=== PATIENT | female | born 2000 | race Two or more races ===

== ENCOUNTER 2020-02-04 13:56 | Observation (INO) | payer MEDICAID ==
[~2020-02-04] VITALS: Ht 154.9 cm; Wt 77.1 kg
[2020-02-04] MEDS ORDERED: TERBUTALINE SULFATE 1 MG/ML 1ML VIAL SC SCH (15:15)
[2020-02-04] MEDS ORDERED: BETAMETHASONE ACET (6MG/ML) 5ML VIAL IM SCH (15:15)
[2020-02-04] MEDS ORDERED: TERBUTALINE SULFATE 1 MG/ML 1ML VIAL SC ONE (15:22)
== END 2020-02-04 16:27 | disposition home or self-care (01) | DRG 563 ==
LOC: LDRP 13:56
PROVIDERS: ADMIT Obstetrics & Gynecology; ATTEND Obstetrics & Gynecology
DX: O60.00 Preterm labor without delivery, unspecified trimester (principal); Z3A.00 Weeks of gestation of pregnancy not specified
CPT/HCPCS: 76818; 81002; 96372; G0378; J0702; J3105

== ENCOUNTER 2020-02-05 15:19 | Observation (INO) | payer MEDICAID ==
[~2020-02-05] VITALS: Ht 171 cm; Wt 77.6 kg
[2020-02-05] MEDS ORDERED: BETAMETHASONE ACET (6MG/ML) 5ML VIAL IM ONE (15:45)
== END 2020-02-05 16:17 | disposition home or self-care (01) | DRG 563 ==
LOC: LDRP 15:19
PROVIDERS: ADMIT Obstetrics & Gynecology; ATTEND Obstetrics & Gynecology
DX: O60.00 Preterm labor without delivery, unspecified trimester (principal); Z3A.00 Weeks of gestation of pregnancy not specified
CPT/HCPCS: 59025; 81002; 96372; G0378

== ENCOUNTER 2020-02-08 14:04 | Observation (INO) | payer MEDICAID ==
[2020-02-08] MEDS ORDERED: PREN-145 OR (14:31)
[2020-02-08] MEDS ORDERED: NIF10C GT (14:31)
== END 2020-02-08 14:47 | disposition home or self-care (01) | DRG 563 ==
LOC: LDRP 14:04
PROVIDERS: ADMIT Specialist; ATTEND Specialist
DX: O60.00 Preterm labor without delivery, unspecified trimester (principal); Z3A.00 Weeks of gestation of pregnancy not specified
CPT/HCPCS: 76818; G0378; 81002

== ENCOUNTER 2020-02-11 14:21 | Observation (INO) | payer MEDICAID ==
[~2020-02-11] VITALS: Ht 154.9 cm; Wt 77.6 kg
[~2020-02-11 14:21] MED LIST: NIF10C GT; PREN-145 OR
[2020-02-11] MEDS ORDERED: LACTATED RINGER'S 1,000 ML IV ONE (15:42)
[2020-02-11] MEDS ORDERED: TERBUTALINE SULFATE 1 MG/ML 1ML VIAL SC SCH (15:45)
== END 2020-02-11 17:10 | disposition home or self-care (01) | DRG 563 ==
LOC: LDRP 14:21
PROVIDERS: ADMIT Specialist; ATTEND Specialist
DX: O60.03 Preterm labor without delivery, third trimester (principal); Z3A.32 32 weeks gestation of pregnancy
CPT/HCPCS: 76818; 81002; 96372; G0378; J3105; 96365

== ENCOUNTER 2020-02-15 11:04 | Observation (INO) | payer MEDICAID ==
[~2020-02-15] VITALS: Ht 154.9 cm; Wt 79.4 kg
[2020-02-15] MEDS ORDERED: NITR-87 PO (11:55)
[2020-02-15] MEDS ORDERED: LACTATED RINGER'S 1,000 ML IV ONE (12:09)
[2020-02-15] MEDS ORDERED: TERBUTALINE SULFATE 1 MG/ML 1ML VIAL SC SCH (12:15)
== END 2020-02-15 14:45 | disposition home or self-care (01) | DRG 563 ==
LOC: LDRP 11:04
PROVIDERS: ADMIT Specialist; ATTEND Specialist
DX: O60.03 Preterm labor without delivery, third trimester (principal); Z3A.33 33 weeks gestation of pregnancy
CPT/HCPCS: 76818; 81002; 96372; G0378; J3105; 59025; 96365

== ENCOUNTER 2020-02-18 14:50 | Observation (INO) | payer MEDICAID ==
[~2020-02-18 14:50] MED LIST changes: +NITR100C44 PO
[2020-02-18] MEDS ORDERED: NIF10C PO (15:51)
== END 2020-02-18 16:10 | disposition home or self-care (01) | DRG 563 ==
LOC: LDRP 14:50
PROVIDERS: ADMIT Obstetrics & Gynecology; ATTEND Obstetrics & Gynecology
DX: O60.03 Preterm labor without delivery, third trimester (principal); Z3A.33 33 weeks gestation of pregnancy
CPT/HCPCS: 76818; 81002; G0378

== ENCOUNTER 2020-02-22 16:06 | Observation (INO) | payer MEDICAID ==
[~2020-02-22] VITALS: Ht 154.9 cm; Wt 79.4 kg
[~2020-02-22 16:06] MED LIST changes: -NIF10C GT; +NIF10C PO
[2020-02-22] MEDS ORDERED: TERBUTALINE SULFATE 1 MG/ML 1ML VIAL SC SCH (17:11)
[2020-02-22] MEDS ORDERED: TERBUTALINE SULFATE 1 MG/ML 1ML VIAL SC ONE (17:19)
== END 2020-02-22 18:00 | disposition home or self-care (01) | DRG 563 ==
LOC: LDRP 16:06
PROVIDERS: ADMIT Obstetrics & Gynecology; ATTEND Obstetrics & Gynecology
DX: O60.03 Preterm labor without delivery, third trimester (principal); Z3A.34 34 weeks gestation of pregnancy
CPT/HCPCS: 76818; 81002; 96372; G0378; J3105

== ENCOUNTER 2020-02-27 11:10 | Observation (INO) | payer MEDICAID | END 2020-02-27 12:30 | disposition home or self-care (01) | DRG 563 | LOC: LDRP 11:10 | PROVIDERS: ADMIT Specialist; ATTEND Specialist | DX: O60.00 Preterm labor without delivery, unspecified trimester (principal); Z3A.34 34 weeks gestation of pregnancy | CPT/HCPCS: 59025; 76817; 76818; 81002; G0378 ==

== ENCOUNTER 2020-03-02 15:12 | Observation (INO) | payer MEDICAID | END 2020-03-02 16:23 | disposition home or self-care (01) | DRG 563 | LOC: LDRP 15:12 | PROVIDERS: ADMIT Obstetrics & Gynecology; ATTEND Obstetrics & Gynecology | DX: O60.03 Preterm labor without delivery, third trimester (principal); O62.9 Abnormality of forces of labor, unspecified; Z3A.35 35 weeks gestation of pregnancy | CPT/HCPCS: 59025; 76818; 81002; G0378 ==

== ENCOUNTER 2020-03-06 16:03 | Observation (INO) | payer MEDICAID | END 2020-03-06 17:45 | disposition home or self-care (01) | DRG 563 | LOC: LDRP 16:03 | PROVIDERS: ADMIT Specialist; ATTEND Specialist | DX: O60.03 Preterm labor without delivery, third trimester (principal); Z3A.35 35 weeks gestation of pregnancy | CPT/HCPCS: 59025; 76818; 81002; G0378 ==

== ENCOUNTER 2020-03-09 18:49 | Observation (INO) | payer MEDICAID ==
[~2020-03-09] VITALS: Ht 154.9 cm; Wt 80.3 kg
== END 2020-03-09 20:18 | disposition home or self-care (01) | DRG 563 ==
LOC: LDRP 18:49
PROVIDERS: ADMIT Specialist; ATTEND Specialist
DX: O60.03 Preterm labor without delivery, third trimester (principal); Z3A.36 36 weeks gestation of pregnancy
CPT/HCPCS: 59025; 76818; 81002; G0378

== ENCOUNTER 2020-03-12 07:31 | Observation (INO) | payer MEDICAID | END 2020-03-12 08:21 | disposition home or self-care (01) | DRG 566 | LOC: LDRP 07:31 | PROVIDERS: ADMIT Obstetrics & Gynecology; ATTEND Obstetrics & Gynecology | DX: O26.893 Other specified pregnancy related conditions, third trimester (principal); R10.30 Lower abdominal pain, unspecified; O60.03 Preterm labor without delivery, third trimester; O62.9 Abnormality of forces of labor, unspecified; Z3A.36 36 weeks gestation of pregnancy | CPT/HCPCS: 59025; 81002; G0378 ==

== ENCOUNTER 2020-03-30 08:20 | Inpatient (IN) | payer MEDICAID ==
[~2020-03-30] VITALS: Ht 154.9 cm; Wt 86.2 kg
[2020-03-30] MEDS ORDERED: LACTATED RINGER'S 1,000 ML IV SCH (08:40)
[2020-03-30] MEDS ORDERED: LACT. RINGERS/OXYTOCIN 20UNITS 1,000 ML IV SCH (08:40)
[2020-03-30] MEDS ORDERED: LIDOCAINE 2%HCL (LOCAL ANESTH.) INJ 20ML MDV ID ONE (08:45)
[2020-03-30 09:19] LABS: Basophils # (auto) 0.1 10 ^3/uL (0-0.2); Basophils % (auto) 0.4 % (0.0-2.0); Eosinophils # (auto) 0.1 10 ^3/uL (0-0.8); Eosinophils % (auto) 0.5 % (0.0-7.0); Hematocrit 35.9 % (36.0-46.0); Hemoglobin 12.1 g/dL (12.2-16.2); Lymphocytes # (auto) 3.3 10 ^3/uL (0.4-5.4); Lymphocytes % (auto) 25.2 % (10.0-50.0); Mean Corpuscular Hemoglobin 29.4 pg (28.0-32.0); Mean Corpuscular Hgb Conc. 33.7 g/dL (32.0-36.0); Mean Corpuscular Volume 87.4 fL (80.0-100.0); Monocytes # (auto) 0.9 10 ^3/uL (0-1.3); Monocytes % (auto) 6.9 % (0.0-12.0); Neutrophils # (auto) 8.9 10 ^3/uL (1.6-8.6); Platelet Count (auto) 298 10^3/uL (140-450); Red Blood Cells 4.11 10^6/uL (4.0-5.20); Red Cell Distribution Width 14.2 % (11.8-14.3); White Blood Cell 13.2 10^3/uL (4.4-10.8)
[2020-03-30 09:29] LABS: Urine Amorphous Crystal FEW /hpf (None Seen); Urine Bacteria NONE SEEN /hpf (None Seen); Urine Blood 1+ /uL (Negative); Urine Mucus FEW (None Seen); Urine WBC 3 /hpf (0 - 5)
[2020-03-30 09:35] LABS: INR 0.92 (0.9-1.15); Partial Thromboplastin Time 28.8 sec (23.64-32.05)
[2020-03-30 09:38] LABS: Albumin 2.8 g/dL (3.4-5.0); Calcium 8.7 mg/dL (8.5-10.1); Potassium 4.1 mmol/L (3.5-5.1)
[2020-03-30 09:43] LABS: BUN/Creatinine Ratio 15.4; Bilirubin, Total 0.3 mg/dL (0.2-1.0); Total Protein 7.2 g/dL (6.4-8.2)
[2020-03-30] MEDS ORDERED: DERMOPLAST 60ML BOTTLE TOP PRN (09:45)
[2020-03-30] MEDS ORDERED: PHISODERM TOP SOLN 240ML BTL TOP PRN (09:45)
[2020-03-30] MEDS ORDERED: WITCH HAZEL-GLYCERIN PAD TOP PRN (09:45)
[2020-03-30 09:49] LABS: Alcohol, Urine < 3.0 mg/dL (0-10); Amphetamine Screen, Urine NEGATIVE (NEGATIVE); Barbiturate Scree,Urine NEGATIVE (NEGATIVE); Benzodiazephine Screen, Urine NEGATIVE (NEGATIVE); Cannabinoid Screen, Urine NEGATIVE (NEGATIVE); Cocaine Screen, Urine NEGATIVE (NEGATIVE); Opiate Scree,Urine NEGATIVE (NEGATIVE); Phencyclidine Screen, Urine NEGATIVE (NEGATIVE)
[2020-03-30] MEDS: IBUPROFEN 600 MG TAB PO PRN ×2 (12:49→23:02)
[2020-03-30 15:00] VITALS: BP 119/63
[2020-03-30 18:30] VITALS: BP 135/69
[2020-03-30 23:00] VITALS: BP 121/72
[2020-03-31 03:00] VITALS: BP 118/64
[2020-03-31] MEDS: IBUPROFEN 600 MG TAB PO PRN (05:33)
[2020-03-31 07:20] VITALS: BP 116/66
[2020-03-31] MEDS ORDERED: DOCUSATE CALCIUM 240 MG CAP PO SCH (10:00)
[2020-03-31 11:20] VITALS: BP 104/54
== END 2020-03-31 13:15 | disposition home or self-care (01) | DRG 560 ==
LOC: UNDOADMOB 08:20 → LDRP 08:20 → OBSVTOIN 08:30 → INTOOBSV 08:30 → LDRP 08:40 → OBSVTOIN 08:40
PROVIDERS: ADMIT Specialist; ATTEND Specialist
PROC: 0W8NXZZ Division of Female Perineum, External Approach (ICD-10-PCS; principal; 2020-03-30)
PROC: 10D07Z6 Extraction of Products of Conception, Vacuum, Via Natural or Artificial Opening (ICD-10-PCS; 2020-03-30)
DX: O69.81X0 Labor and delivery complicated by cord around neck, without compression, not applicable or unspecified (principal); O62.3 Precipitate labor; O77.0 Labor and delivery complicated by meconium in amniotic fluid; Z3A.39 39 weeks gestation of pregnancy; Z37.0 Single live birth
CPT/HCPCS: 36415; 59025; 59409; 80053; 80307; 81001; 81002; 84112; 85025; 85610; 85730; 86592; 86703; 86850; 86900; 86901; 96365; 96366; G0378; J2590

== ENCOUNTER 2020-05-14 12:40 | Inpatient (IN) | payer MEDICAID ==
[~2020-05-14] VITALS: Ht 154.9 cm; Wt 81.8 kg
[~2020-05-14 12:40] MED LIST changes: +NITR-87 PO; -NITR100C44 PO
[2020-05-14 14:21] LABS: Basophils # (auto) 0.1 10 ^3/uL (0-0.2); Basophils % (auto) 0.4 % (0.0-2.0); Eosinophils # (auto) 0.1 10 ^3/uL (0-0.8); Eosinophils % (auto) 0.4 % (0.0-7.0); Hematocrit 43.2 % (36.0-46.0); Hemoglobin 13.9 g/dL (12.2-16.2); Lymphocytes # (auto) 2.6 10 ^3/uL (0.4-5.4); Lymphocytes % (auto) 16.1 % (10.0-50.0); Mean Corpuscular Hemoglobin 27.5 pg (28.0-32.0); Mean Corpuscular Hgb Conc. 32.3 g/dL (32.0-36.0); Mean Corpuscular Volume 85.1 fL (80.0-100.0); Monocytes # (auto) 0.7 10 ^3/uL (0-1.3); Monocytes % (auto) 4.2 % (0.0-12.0); Neutrophils # (auto) 12.5 10 ^3/uL (1.6-8.6); Neutrophils % (auto) 78.9 % (37.0-80.0); Platelet Count (auto) 340 10^3/uL (140-450); Red Blood Cells 5.07 10^6/uL (4.0-5.20); White Blood Cell 15.9 10^3/uL (4.4-10.8)
[2020-05-14 14:25] LABS: Urine Bacteria MOD /hpf (None Seen); Urine Blood Negative /uL (Negative); Urine Mucus FEW (None Seen); Urine Specific Gravity 1.028 (1.001-1.035); Urine WBC 4 /hpf (0 - 5)
[2020-05-14 14:40] LABS: Albumin 4.1 g/dL (3.4-5.0); BUN/Creatinine Ratio 18.2; Calcium 9.7 mg/dL (8.5-10.1); Potassium 3.8 mmol/L (3.5-5.1)
[2020-05-14 14:43] LABS: Bilirubin, Total 0.4 mg/dL (0.2-1.0); Total Protein 8.5 g/dL (6.4-8.2)
[2020-05-14] MEDS ORDERED: SODIUM CHLORIDE 0.9% 1,000 ML IVB ONE (17:54)
[2020-05-14] MEDS ORDERED: cefTRIAXone 1GM/50ML D5W 50 ML IV ONE ×2 (18:00→19:15)
[2020-05-14] MEDS ORDERED: ACETAMINOPHEN 500 MG TAB PO PRN (19:15)
[2020-05-14] MEDS ORDERED: TEMAZEPAM 15 MG CAP PO PRN (19:15)
[2020-05-14] MEDS ORDERED: FAMOTIDINE (10MG/ML) 2ML VL IV SCH (19:15)
[2020-05-14] MEDS ORDERED: traMADol HCL 50 MG TAB PO PRN (19:15)
[2020-05-14] MEDS ORDERED: PROMETHAZINE HCL 25 MG/ML 1ML IV PRN (19:15)
--- NOTE | 2020-05-14 19:30 | NUR ---
Opening Shift Note Assumed care of patient, awake. No S/S of distress/SOB or pain. Insructed on POC. Will continue to monitor for changes Q1hr and PRN. Fall and safety precautions in place. Call light within reach. Addendum: 05/15/20 at 0041 by Sarah Perez RN wrong pt
[2020-05-14 22:00] VITALS: BP 127/68
[2020-05-14] MEDS ORDERED: metroNIDAZOLE 500MG/100ML 100 ML IV SCH (22:00)
--- NOTE | 2020-05-14 22:00 | NUR ---
MS admit from ER INDIRA COY admitted to tele/MS after SBAR received. Patient oriented to Sarah aceves RN, unit, room, bed, and unit policies regarding patient care and visiting hours. Patient weighed by bedscale and encouraged to call if they need something. All questions and concerns addressed, patient verbalized understanding. Note:
[2020-05-14] MEDS: SODIUM CHLORIDE 0.9% 1,000 ML IV SCH (22:34)
--- NOTE | 2020-05-15 00:15 | NUR ---
gave report to CHANEL Wall
[2020-05-15 05:00] VITALS: BP 106/59
[2020-05-15] MEDS: SODIUM CHLORIDE 0.9% 1,000 ML IV SCH ×2 (05:08→15:15)
--- NOTE | 2020-05-15 08:00 | NUR ---
Opening Shift Note Assumed care of patient, awake. No S/S of distress/SOB or pain. Instructed on POC. Will continue to monitor for changes Q1hr and PRN.Fall and safety precautions in place. Call light within reach.
[2020-05-15 08:03] LABS: Basophils # (auto) 0.1 10 ^3/uL (0-0.2); Basophils % (auto) 0.7 % (0.0-2.0); Eosinophils # (auto) 0.1 10 ^3/uL (0-0.8); Eosinophils % (auto) 0.7 % (0.0-7.0); Hematocrit 37.1 % (36.0-46.0); Hemoglobin 12.3 g/dL (12.2-16.2); Lymphocytes # (auto) 2.2 10 ^3/uL (0.4-5.4); Lymphocytes % (auto) 27.9 % (10.0-50.0); Mean Corpuscular Hemoglobin 28.1 pg (28.0-32.0); Mean Corpuscular Hgb Conc. 33.2 g/dL (32.0-36.0); Mean Corpuscular Volume 84.6 fL (80.0-100.0); Monocytes # (auto) 0.5 10 ^3/uL (0-1.3); Monocytes % (auto) 6.6 % (0.0-12.0); Neutrophils # (auto) 5.1 10 ^3/uL (1.6-8.6); Neutrophils % (auto) 64.1 % (37.0-80.0); Platelet Count (auto) 281 10^3/uL (140-450); Red Blood Cells 4.39 10^6/uL (4.0-5.20); Red Cell Distribution Width 12.9 % (11.8-14.3); White Blood Cell 7.9 10^3/uL (4.4-10.8)
[2020-05-15 08:16] LABS: Albumin 3.5 g/dL (3.4-5.0); Calcium 8.9 mg/dL (8.5-10.1); Potassium 3.7 mmol/L (3.5-5.1)
[2020-05-15 08:23] LABS: BUN/Creatinine Ratio 24.3; Bilirubin, Total 3.2 mg/dL (0.2-1.0); Total Protein 7.4 g/dL (6.4-8.2)
[2020-05-15 09:00] VITALS: BP 120/71
[2020-05-15] MEDS: cefTRIAXone 1GM/50ML D5W 50 ML IV SCH (10:02)
[2020-05-15] MEDS: metroNIDAZOLE 500MG/100ML 100 ML IV SCH ×2 (10:03→17:00)
[2020-05-15] MEDS: FAMOTIDINE (10MG/ML) 2ML VL IV SCH ×2 (10:03→21:23)
--- NOTE | 2020-05-15 10:30 | NUR ---
pumping patient has a 10week old baby at home and pumps q4hrs. breast milk placed in bag with patient sticker with date and time and placed in refrigerator.
[2020-05-15 13:00] VITALS: BP 115/74
--- NOTE | 2020-05-15 13:30 | NUR ---
DR AVELAR BEDSIDE. PATIENT WILL HAVE AN MRCP TOMORROW 05/16/20
[2020-05-15] MEDS ORDERED: SODIUM CHLORIDE 0.9% 1,000 ML IV SCH (15:00)
[2020-05-15 17:00] VITALS: BP 116/74
--- NOTE | 2020-05-15 18:30 | NUR ---
MRCP COMPLETED PATIENT BACK IN ROOM, TOLERATED WELL.
--- NOTE | 2020-05-15 18:59 | NUR ---
ENDORSED CARE TO NIGHT RN.
--- NOTE | 2020-05-15 19:20 | NUR ---
Opening Shift Note Assumed care of patient, awake and alert. No S/S of distress/SOB or pain. Bed is locked in lowest position, call light is within reach, and patient is sitting up supine in bed. Instructed on POC and to call for assist PRN, will continue to monitor for changes Q1hr and PRN.
[2020-05-15 20:00] VITALS: BP 116/74
--- NOTE | 2020-05-15 21:32 | NUR ---
Patient Pumping Breast Milk Patient has a 10week old baby at home and pumps q4hrs. Breast milk placed in bag with patient sticker with date (05/15) and time (2131) and placed in refrigerator.
[2020-05-16] VITALS (7 sets, daily range): BP systolic 107–124; BP diastolic 62–68
[2020-05-16] MEDS: metroNIDAZOLE 500MG/100ML 100 ML IV SCH ×3 (01:05→16:51)
[2020-05-16] MEDS: SODIUM CHLORIDE 0.9% 1,000 ML IV SCH ×3 (01:15→14:30)
--- NOTE | 2020-05-16 07:14 | NUR ---
Endorsed Patient Care to Day Shift RN Patient is AOx4, in bed resting w/ bed locked in lowest position and call light within reach. No s/s of distress, SOB or pain at this time
[2020-05-16 07:55] LABS: Albumin 3.3 g/dL (3.4-5.0)
[2020-05-16 08:00] LABS: Bilirubin, Direct 0.4 mg/dL (0-0.2); Bilirubin, Total 0.8 mg/dL (0.2-1.0); Total Protein 6.8 g/dL (6.4-8.2)
[2020-05-16] MEDS: cefTRIAXone 1GM/50ML D5W 50 ML IV SCH (09:00)
[2020-05-16] MEDS: FAMOTIDINE (10MG/ML) 2ML VL IV SCH ×2 (09:55→21:51)
[2020-05-16 11:15] LABS: INR 1.07 (0.9-1.15)
--- NOTE | 2020-05-16 19:30 | NUR ---
Opening Shift Note Patient is AOx4 w/ HOB at 30 degrees and laying supine in bed. Patient has No signs of distress, SOB, or pain noted at this time. Safety precautions in place, call light within reach. Will continue to monitor.
[2020-05-17] MEDS: metroNIDAZOLE 500MG/100ML 100 ML IV SCH ×3 (00:33→16:30)
--- NOTE | 2020-05-17 04:26 | NUR ---
PAIN IN RIGHT SIDE OF ABDOMEN PATIENT RUBBING HER LEFT SIDE AND SAID "I FEEL A LITTLE WEIRD." WHEN ASKED WHAT SHE WAS FEELING SHE SAID " I FEEL SOME PAIN, BUT ITS NOT THAT BAD." SHE WAS ASKED IF SHE NEEDED ANY PAIN MEDICATION, BUT SHE REFUSED AT THIS TIME. WILL CONTINUE TO MONITOR PAIN LEVEL. PATIENT INSTRUCTED TO CALL IF NEEDED.
[2020-05-17] MEDS: SODIUM CHLORIDE 0.9% 1,000 ML IV SCH (04:48)
[2020-05-17 05:00] VITALS: BP 102/61
--- NOTE | 2020-05-17 07:00 | NUR ---
ENDORSED PATIENT CARE TO MORNING SHIFT RN.
[2020-05-17 07:14] LABS: Albumin 3.2 g/dL (3.4-5.0)
--- NOTE | 2020-05-17 07:15 | NUR ---
Opening Shift Note Assumed care of patient, awake. No S/S of distress/SOB or pain. NPO for procedure. Instructed on POC. Will continue to monitor for changes Q1hr and PRN.Fall and safety precautions in place. Call light within reach.
[2020-05-17 07:18] LABS: Bilirubin, Direct 0.3 mg/dL (0-0.2); Bilirubin, Total 0.6 mg/dL (0.2-1.0); Total Protein 6.6 g/dL (6.4-8.2)
--- NOTE | 2020-05-17 07:30 | NUR ---
transported to procedure via hospital bed. endorsed care to preop RN. patient tolerated well, denied pain, no sidtress noted,respirations relaxed and even.
[2020-05-17 08:00] VITALS: BP 101/68
[2020-05-17] MEDS ORDERED: ceFAZolin 1GM/50ML 50 ML IV ONE (08:38)
[2020-05-17] MEDS ORDERED: LIDOCAINE 1% (LOCAL ANESTH.) PF 5ml SDV ONE (08:59)
[2020-05-17] MEDS ORDERED: SUCCINYLCHOLINE CHLORIDE 20 MG/ML 10ML VIAL IV ONE (08:59)
[2020-05-17 09:00] VITALS: BP 117/69
[2020-05-17] MEDS ORDERED: NALOXONE HCL 0.4 MG/ML VIAL IV PRN (09:00)
[2020-05-17] MEDS ORDERED: ONDANSETRON HCL 4 MG/2 ML VIAL IV PRN (09:00)
[2020-05-17] MEDS: cefTRIAXone 1GM/50ML D5W 50 ML IV SCH (09:00)
[2020-05-17] MEDS ORDERED: HYDROmorphone HCL 2 MG/ML VL IV PRN (09:00)
[2020-05-17] MEDS ORDERED: MIDAZOLAM HCL 1MG/1ML-2 ML VIAL ONE (09:12)
[2020-05-17] MEDS ORDERED: PROPOFOL 10 MG/ML 20 ML IV ONE (09:12)
[2020-05-17] MEDS ORDERED: ROCURONIUM 10MG/ML 10ML VIAL IV ONE (09:12)
[2020-05-17] MEDS ORDERED: METOCLOPRAMIDE HCL 5MG/ml INJ 2ml VIAL ONE (09:18)
[2020-05-17] MEDS ORDERED: fentaNYL CITRATE 100 MCG/2 ML VL ONE (09:25)
[2020-05-17] MEDS ORDERED: GLYCOPYRROLATE 0.2 MG/ML 1ML VIAL ONE (09:53)
[2020-05-17] MEDS ORDERED: NEOSTIGMINE 1 MG/ML INJ (10mg/10ML VIAL) ONE (09:53)
[2020-05-17] MEDS: FAMOTIDINE (10MG/ML) 2ML VL IV SCH ×2 (10:00→21:52)
[2020-05-17] MEDS: HYDROmorphone HCL 2 MG/ML VL IV PRN ×2 (10:26→10:36)
--- NOTE | 2020-05-17 11:37 | NUR ---
RETURNED FROM PROCEDURE S/P LAP MARY. 3 DRESSINGS GAUZE SECURED WITH TEGADREM; 2 MIDABDOMEN DRY AND INTACT WITH BETADINE ON THE EDSGES, RIGHT LOWER DRESSING DRY AND INTACT WITH PINPOINT DRAINAGE NOTED.
[2020-05-17] MEDS: PROMETHAZINE HCL 25 MG/ML 1ML IV PRN ×2 (11:39→16:31)
[2020-05-17] MEDS: MORPHINE SULF INJ 2 MG/ML SYRINGE 1ML IV PRN ×2 (11:40→16:31)
[2020-05-17 13:00] VITALS: BP 121/52
--- NOTE | 2020-05-17 14:54 | NUR ---
Nutrition Assessment Notes please see attached link for complete assessment Est Energy needs ABW 65 [id number] kcals (23-25 kcal/kgBW), Est Protein needs: 65-71 gms/day (1.0-1.1 gm/kgBW). Will continue to monitor and reassess prn. Addendum: 05/17/20 at [address] Amended: Links added.
--- NOTE | 2020-05-17 17:23 | NUR ---
AMBULATED TO THE BATHROOM TWICE TODAY WITHOUT DIFFICULTY.
[2020-05-17 17:36] VITALS: BP 134/73
--- NOTE | 2020-05-17 18:58 | NUR ---
ENDORSED CARE TO NIGHT RN
--- NOTE | 2020-05-17 19:40 | NUR ---
Opening Shift Note Assumed care of patient, awake and alert. No S/S of distress/SOB. Pt stated having pain in her abdomen but refused prescribed pain medication. Pt offered a hot pack. Pt also given IS to use at bedside. Instructed pt on use of IS, pt showed return demonstration and effort was measured at 900. Instructed pt to use the IS 10 times per hour or as often as possible and to strive to beat her previous level. Instructed on POC, to call for assist PRN and if pain worsens , will continue to monitor for changes Q1hr and PRN. Safety measures in place, bed in lowest position, bed rails raised x2, call light within reach.
[2020-05-17 22:00] VITALS: BP 128/78
[2020-05-18] MEDS: metroNIDAZOLE 500MG/100ML 100 ML IV SCH ×2 (01:21→09:39)
[2020-05-18 05:00] VITALS: BP 117/67
--- NOTE | 2020-05-18 06:06 | NUR ---
Pt status update Pt states that she is not experiencing any pain, distress, SOB or nausea. Also states that she has passed gas. IS measured at 1250. Will continue to monitor
[2020-05-18 06:19] LABS: Basophils # (auto) 0 10 ^3/uL (0-0.2); Basophils % (auto) 0.6 % (0.0-2.0); Eosinophils # (auto) 0.1 10 ^3/uL (0-0.8); Eosinophils % (auto) 0.8 % (0.0-7.0); Hematocrit 36.3 % (36.0-46.0); Hemoglobin 12.1 g/dL (12.2-16.2); Lymphocytes # (auto) 2.7 10 ^3/uL (0.4-5.4); Mean Corpuscular Hemoglobin 28.2 pg (28.0-32.0); Mean Corpuscular Hgb Conc. 33.5 g/dL (32.0-36.0); Mean Corpuscular Volume 84.4 fL (80.0-100.0); Monocytes # (auto) 0.5 10 ^3/uL (0-1.3); Monocytes % (auto) 6.4 % (0.0-12.0); Neutrophils # (auto) 4.4 10 ^3/uL (1.6-8.6); Neutrophils % (auto) 57.2 % (37.0-80.0); Nucleated Red Blood Cells % 0.1 %; Platelet Count (auto) 311 10^3/uL (140-450); Red Cell Distribution Width 12.8 % (11.8-14.3); White Blood Cell 7.7 10^3/uL (4.4-10.8)
[2020-05-18 06:44] LABS: Albumin 3.2 g/dL (3.4-5.0); Calcium 8.4 mg/dL (8.5-10.1); Magnesium 2.1 mg/dL (1.6-2.6); Potassium 3.3 mmol/L (3.5-5.1)
[2020-05-18 06:50] LABS: Bilirubin, Total 0.7 mg/dL (0.2-1.0); Total Protein 6.7 g/dL (6.4-8.2)
[2020-05-18 08:00] VITALS: BP 127/70
--- NOTE | 2020-05-18 08:00 | NUR ---
Opening Shift Note Assumed care of patient, awake and alert. No S/S of distress/SOB or pain. Instructed on POC and to call for assist PRN, will continue to monitor for changes Q1hr and PRN. Bed locked in lowest position with two side rails up and call light in reach.
[2020-05-18 09:00] VITALS: BP 127/70
[2020-05-18] MEDS: cefTRIAXone 1GM/50ML D5W 50 ML IV SCH (09:39)
[2020-05-18] MEDS: FAMOTIDINE (10MG/ML) 2ML VL IV SCH (09:39)
[2020-05-18 13:00] VITALS: BP 125/75
[2020-05-18] MEDS ORDERED: POTASSIUM CHL 20 Meq TABLET PO ONE (15:45)
[2020-05-18 16:58] VITALS: BP 127/70
--- NOTE | 2020-05-18 17:34 | NUR ---
Discharge instructions given as ordered. Encourage to follow up with PMD as instructed. All questions and concerns addressed. Patient verbalized understanding. Medication reconciliation form completed and copy given to patient. No Home medications held in Pharmacy and none to be returned to patient, and no needed vaccines given. IV removed with catheter intact, pressure dressing applied. Patient ambulated to vehicle with all personal belongings, accompanied by staff and family member. No distress noted at time of departure.
== END 2020-05-18 17:30 | disposition home or self-care (01) | DRG 263 ==
LOC: ER 12:40 → OVERFLOW 12:41 → WEST WING 22:04
PROVIDERS: ADMIT Internal Medicine; ATTEND Internal Medicine
PROC: 3E013GC Introduction of Other Therapeutic Substance into Subcutaneous Tissue, Percutaneous Approach (ICD-10-PCS; 2020-05-17)
PROC: 0FT44ZZ Resection of Gallbladder, Percutaneous Endoscopic Approach (ICD-10-PCS; principal; 2020-05-17 09:10)
DX: K80.10 Calculus of gallbladder with chronic cholecystitis without obstruction (principal); R65.10 Systemic inflammatory response syndrome (SIRS) of non-infectious origin without acute organ dysfunction; E66.9 Obesity, unspecified; N39.0 Urinary tract infection, site not specified; Z83.3 Family history of diabetes mellitus; Z68.32 Body mass index [BMI] 32.0-32.9, adult
CPT/HCPCS: 36415; 74176; 74181; 76705; 80053; 80076; 81001; 81025; 82150; 83690; 83735; 85025; 85610; 85730; 86850; 86900; 86901; 93005; G0378; J0330; J0690; J0696; J2250; J2405; J2704; J3490